=== PATIENT | male | born 1935 | race Caucasian/White ===

== ENCOUNTER 2016-09-21 04:43 | Emergency (ER) | payer MEDICARE, OTHER ==
[2016-09-21 04:43] VITALS: O2SAT 96
[2016-09-21] MEDS ORDERED: ceFAZolin 2 GM PREMIX 50 ML IV STA (04:57)
[2016-09-21] MEDS ORDERED: DIPHTH/TETANUS/ACEL PERTUSSIS (BOOSTER) 0.5 ML VIAL/PFS IM ONE ×2 (04:57→04:58)
[2016-09-21] MEDS ORDERED: ceFAZolin 2 GM PREMIX 50 ML ONE (04:58)
[2016-09-21 05:04] LABS: I-STAT POTASSIUM 4.5 MMOL/L (3.5-4.9)
[2016-09-21 05:05] LABS: AUTOMATED NEUTROPHIL # 4.5 TH/MM3 (1.8-7.7); BASOPHIL # 0.1 TH/MM3 (0-0.2); EOSINOPHIL # 0.4 TH/MM3 (0-0.4); EOSINOPHIL % 5.5 % (0.0-4.0); HEMATOCRIT 36.9 % (39.0-51.0); HEMO FLAGS DIFF FINAL; LYMPH % 16.4 % (9.0-44.0); LYMPHOCYTE # 1.1 TH/MM3 (1.0-4.8); MEAN CELL VOLUME 93.3 FL (80.0-100.0); MEAN CORPUSCULAR HEMOGLOBIN 30.9 PG (27.0-34.0); MEAN CORPUSCULAR HGB CONC 33.1 % (32.0-36.0); MONO % 10.6 % (0.0-8.0); NEUT % 66.5 % (16.0-70.0); PLATELET COUNT 225 TH/MM3 (150-450); RED BLOOD COUNT 3.95 MIL/MM3 (4.50-5.90); RED CELL DISTRIBUTION WIDTH 14.6 % (11.6-17.2); WHITE BLOOD COUNT 6.7 TH/MM3 (4.0-11.0)
[2016-09-21 05:15] LABS: APTT (PATIENT) 31.3 SEC (24.3-30.1); INTERNATIONAL NORMALIZED RATIO 1.2 RATIO; PROTHROMBIN TIME - PATIENT 13.6 SEC (9.8-11.6)
[2016-09-21] MEDS ORDERED: LIDOCAINE 1%/EPINEPHrine 1:100,000 SOLN 50 ML VIAL ONE (05:22)
--- NOTE | 2016-09-21 05:23 | PD ---
HPI Chief Complaint: Trauma (Alert) Time Seen by Provider: 04:45 Travel History International Travel<30 days: No Contact w/Intl Traveler<30days: No Traveled to known affect area: No History of Present Illness HPI The patient is a reportedly 80 year old male who presents to the [facility] emergency department with a history of being heard by the [facility] staff to fall in his room prior to arrival. They aren't sure whether he fell out of bed or fell from a standing position. The patient cannot recall a fall. The patient has a history of confusion with a GCS normally of 14. The patient was noted to be sitting holding his head with active bleeding. The patient had a 15 cm laceration to the forehead noted. A pressure bandage was applied prior to arrival. It is unknown whether he had a loss of consciousness although he did not appear to according to the [facility]ci staff. The patient at this time is not providing any significant history. The patient's history is obtained through the electronic medical record. He is able to follow commands and moves all extremities equally. He is to provide any other history on review of systems. [facility] Past Medical History Narrative Medical The patient's past medical history is significant for atrial fibrillation, history of liver cirrhosis, history of psychosis, history of sleep apnea, history of prior stroke, history of sick sinus syndrome, history of AICD placement, history of a cardiomyopathy with an ejection fraction of 30%. The patient is currently anticoagulated with Xarelto. Past Surgical History Narrative Surgical The patient's past surgical history is obtained through the electronic medical record and consists of AICD placement. Social History Alcohol Use: No Tobacco Use: No Substance Use: No Allergies-Medications (Allergen,Severity, Reaction): Coded Allergies: MRI PRECAUTION (Verified Allergy, Unknown, 09/21/16) Reported Meds & Prescriptions Reported Meds & Active Scripts Active Reported Aspir-81 (Aspirin) 81 Mg Tabdr 1 Tab PO DAILY Aricept (Donepezil HCl) 10 Mg Tablet 1 Tab PO DAILY Lasix (Furosemide) 40 Mg Tab 40 Mg PO BID Coreg (Carvedilol) 3.125 Mg Tab 3.125 Mg PO BID Xarelto (Rivaroxaban) 20 Mg Tab 20 Mg PO DAILY Lisinopril 10 Mg Tab 10 Mg PO DAILY Feosol (Ferrous Sulfate) 200 Mg Tab 200 Mg PO TID Review of Systems ROS Limitations: Poor Historian Physical Exam Narrative General: The patient is a well-developed well-nourished male in no acute distress. The patient is brought in on a back board, however no cervical collar was in place as the patient's neck was too large to place one on. Head and Neck exam: Head is normocephalic, evidence of trauma over the forehead with a 15 cm laceration that is gaping approximately 4 cm. Active bleeding is noted with removal of the pressure dressing. Pressure dressing was reapplied. No facial bone tenderness or increased facial bone mobility noted on palpation. Eyes: EOMI, pupils are equal round and reactive to light. Nose: Midline septum with pink mucous membranes Mouth: Dentition unremarkable. Moist mucus membranes. Posterior oropharynx is not erythematous. No tonsillar hypertrophy. Uvula midline. Airway patent. Neck: The patient has no spinous process tenderness to palpation. No step-off or crepitus. No tracheal deviation. The trachea appears midline. Cardiovascular: Regular rate and rhythm without murmurs, gallops, or rubs. No pulse deficit to the extremities. Lungs: Clear to auscultation bilaterally. No wheezes, rhonchi, or rales. No chest wall tenderness to palpation. No erythema or ecchymosis noted. No crepitus , step off, or flail segment noted. Abdomen: Soft, without tenderness to palpation in all 4 quadrants of the abdomen. No guarding, rebound, or rigidity. No erythema or ecchymosis noted. Extremities: No instability or pain noted on pelvic rock. No clubbing or cyanosis. The patient has 1+ edema bilateral lower extremities with bandages in place. 2+ pulses in all 4 extremities. No extremity tenderness or deformity noted on palpation or passive/ active range of motion, except on examination of bilateral lower extremities the patient has dressings in place over bilateral lower extremities. These were removed. The patient has chronic wounds on examination with superficial skin breakdown. Dressings will be reapplied. Back: The patient was log rolled off of the back board. No spinous process tenderness to palpation. No stepoff or crepitus noted. No costovertebral angle tenderness to palpation. No erythema or ecchymosis. Neurologic Exam: Cranial nerves 2-12 were intact on exam. Strength is 5/5 in all 4 extremities. No sensory deficits noted. The patient is oriented to person , however not place, time, or situation. Data Data Last Documented VS Vital Signs Date Time Temp Pulse Resp B/P Pulse Ox O2 Delivery O2 Flow Rate FiO2 09/21/16 09:19 69 15 119/53 97 Nasal Cannula 2 09/21/16 06:03 97.9 Orders I-Stat Profile (09/21/16 04:46) I-Stat Creatinine (09/21/16 04:46) Complete Blood Count With Diff (09/21/16 04:46) Prothrombin Time / Inr (Pt) (09/21/16 04:46) Act Partial Throm Time (Ptt) (09/21/16 04:46) Type And Screen (09/21/16 04:46) Chest, Single Ap (09/21/16 04:46) Pelvis, Ap Only (Routine) (09/21/16 04:46) Ct Brain W/O Iv Contrast(Rout) (09/21/16 04:46) Ct Cerv Spine W/O Contrast (09/21/16 04:46) Iv Access Insert/Monitor (09/21/16 04:46) Ecg Monitoring (09/21/16 04:46) Oximetry (09/21/16 04:46) Oxygen Administration (09/21/16 04:46) Cefazolin 2 Gm Premix (Ancef 2 Gm Premix (09/21/16 04:58) Vvxu-Fbj-Tpjugo (Booster) Inj (Boostrix (09/21/16 04:58) Lidocai-Epi 1%-1:100,000 Inj (Xylocaine- (09/21/16 05:22) Midazolam Inj (Versed Inj) (09/21/16 05:30) Midazolam Inj (Versed Inj) (09/21/16 05:24) Cefazolin 2 Gm Premix (Ancef 2 Gm Premix (09/21/16 04:57) Xtrp-Uhf-Nnpvdp (Booster) Inj (Boostrix (09/21/16 04:57) Trauma Office Use Only (09/21/16 11:10) Labs Laboratory Tests Test 09/21/16 04:48 White Blood Count 6.7 TH/MM3 Red Blood Count 3.95 MIL/MM3 Hemoglobin 12.2 GM/DL Bedside Hemoglobin 12.9 G/DL Hematocrit 36.9 % Bedside Hematocrit 38.0 % Mean Corpuscular Volume 93.3 FL Mean Corpuscular Hemoglobin 30.9 PG Mean Corpuscular Hemoglobin 33.1 % Concent Red Cell Distribution Width 14.6 % Platelet Count 225 TH/MM3 Mean Platelet Volume 9.9 FL Neutrophils (%) (Auto) 66.5 % Lymphocytes (%) (Auto) 16.4 % Monocytes (%) (Auto) 10.6 % Eosinophils (%) (Auto) 5.5 % Basophils (%) (Auto) 1.0 % Neutrophils # (Auto) 4.5 TH/MM3 Lymphocytes # (Auto) 1.1 TH/MM3 Monocytes # (Auto) 0.7 TH/MM3 Eosinophils # (Auto) 0.4 TH/MM3 Basophils # (Auto) 0.1 TH/MM3 CBC Comment DIFF FINAL Differential Comment Prothrombin Time 13.6 SEC Prothromb Time International 1.2 RATIO Ratio Activated Partial 31.3 SEC Thromboplast Time Bedside Sodium 142 MMOL/L Bedside Potassium 4.5 MMOL/L Bedside Chloride 100 MMOL/L Bedside Blood Urea Nitrogen 38 MG/DL Bedside Creatinine 1.9 MG/DL Bedside Glucose 121 MG/DL Blood Type A POSITIVE Antibody Screen NEGATIVE MDM Medical Decision Making Medical Screen Exam Complete: Yes Emergency Medical Condition: Yes Medical Record Reviewed: Yes Interpretation(s) Last Impressions Pelvis X-Ray 09/21/16445 Signed Impressions: Service Date/Time: Wednesday, September 21, 2016 04:37 - CONCLUSION: Unremarkable examination of the pelvis. Only the proximal femora are exposed. 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 No evidence of acute hemorrhage or edema. Mitch Bragg MD Chest X-Ray [id number]/[id number] Signed Impressions: Service Date/Time: Wednesday, September 21, 2016 04:37 - CONCLUSION: Normal examination. Left subclavian single lead pacer in good position Mitch Bragg MD Cervical Spine CT [id number] Signed Impressions: Service Date/Time: Wednesday, September 21, 2016 05:08 - CONCLUSION: Normal examination. Mitch Bragg MD Differential Diagnosis Intracranial hemorrhage, versus cervical spine fracture, versus facial laceration Narrative Course During the course of the patients emergency department visit, the patients history, examination, and differential diagnosis were reviewed with the patient. The patient had 2 large-bore IVs place and bilateral upper extremities. An i-STAT with creatinine was ordered. A chest x-ray, pelvic x- ray was ordered. A pressure bandage was reapplied to the patient's head. The CT scan of the head, neck was ordered. Prior to arrival in trauma alert was called on this patient. The trauma surgeon, was notified at 4:34 AM regarding this patient's trauma alert status. He did come in and evaluate the patient at the patient's bedside when he was in the trauma bay. The patient was initially provided an update of his tetanus, Ancef 2 g IV. The patient was accompanied to CT by the trauma surgeon. As no evidence of hemorrhage was noted on CT scan of the brain, CT scan of the C-spine showed no acute abnormality. He recommended repair of the wound and discharged back to the patient's [facility]. Kellie, the physician promotions assistant was consultative regarding wound irrigation and repair. The patients laboratory studies were reviewed and remarkable for a white count of 6.7 hemoglobin 12.9, platelets 225 with 10.6 monocytes, i-STAT with creatinine reveals a sodium of 142, potassium 4.5, chloride 100, BUN 38, creatinine 1.9, glucose 121, PT 13.6, INR 1.2, PTT 31.3 Radiology studies were reviewed and remarkable for a chest x-ray that shows a normal examination according to the reading radiologist with the left subclavian single lead pacer in good position, pelvis x-ray shows no acute abnormality, CT scan of the brain shows no acute abnormality, large old left sided MCA stroke is noted. CT scan of the C-spine shows no acute abnormality. The patient's dressings were removed from his legs. The patient has chronic appearing areas of ulceration along the lower extremities. Dressings were reapplied to the patient's legs. The patient is resting comfortably and feels better, is alert and in no distress. The patients results and examination findings were discussed with the patient. The repeat examination is unremarkable and benign. The history, exam, diagnostic testing, and current condition do not suggest any significant pathology to warrant further testing, continued ED treatment, admission, or surgical evaluation at this point. The vital signs have been stable. The patient does not have uncontrollable pain, intractable vomiting, or other significant symptoms. The patient's condition is stable and appropriate for discharge. The patient will pursue further outpatient evaluation with a primary care physician or other designated or consulting physician as indicated in the discharge instructions. The patient expressed understanding and was agreeable with this plan. Physician Communication Physician Communication The patient's case was discussed with the trauma surgeon, . As the patient has no acute findings on his imaging, he reports that the patient can be discharged back to his [facility]. Diagnosis Primary Impression: Head injury due to trauma Qualified Code: S09.90XA - Head injury due to trauma, initial encounter Additional Impression: Forehead laceration Qualified Code: S01.81XA - Forehead laceration, initial encounter Referrals: Primary Care Physician 1 day Patient Instructions: Facial Laceration (ED), General Instructions, Head Injury (ED) Additional Instructions: The patient's [facility]ci will be instructed on head injury protocol. Med/Other Pt SpecificInfo: No Change to Meds Disposition: 03 DISCHARGE TO SNF Condition: Stable Divina Shelby MD Sep 21, 2016 05:23
[2016-09-21] MEDS ORDERED: MIDAZOLAM HCL 5 MG/ML VIAL (1 ML) ONE (05:24)
--- NOTE | 2016-09-21 05:25 | RADRPT ---
EXAM DATE/TIME: 09/21/2016 05:07 [facility] COMPARISON: No previous studies available for comparison. INDICATIONS : Trauma alert, fell out of bed. Large laceration on forehead. RADIATION DOSE: 56.35 CTDIvol (mGy) MEDICAL HISTORY : None SURGICAL HISTORY : None. ENCOUNTER: Initial ACUITY: 1 day PAIN SCALE: 5/10 LOCATION: cranial TECHNIQUE: Multiple contiguous axial images were obtained of the head. Using automated exposure control and adj ustment of the mA and/or kV according to patient size, radiation dose was kept as low as reasonably a chievable to obtain optimal diagnostic quality images. FINDINGS: Pacemaker overlies left chest CEREBRUM: Old stroke involving the left MCA distribution The ventricles are normal for age. No evidence of mid line shift, mass lesion, hemorrhage or acute infarction. No extra-axial fluid collections are seen. POSTERIOR FOSSA: The cerebellum and brainstem are intact. The 4th ventricle is midline. The cerebellopontine angle i s unremarkable. EXTRACRANIAL: The visualized portion of the orbits is intact. SKULL: The calvaria is intact. No evidence of skull fracture. 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 No evidence of acute hemorrhage or edema. Mitch Bragg MD on September 21, 2016 at 5:23 Board Certified Radiologist. This report was verified electronically.
[2016-09-21] MEDS ORDERED: MIDAZOLAM HCL 2 MG/2 ML VIAL IV PUSH ONE (05:30)
--- NOTE | 2016-09-21 05:34 | RADRPT ---
EXAM DATE/TIME: 09/21/2016 04:37 [facility] COMPARISON: No previous studies available for comparison. INDICATIONS : Trauma Alert, fall out of bed. MEDICAL HISTORY : None. SURGICAL HISTORY : None. ENCOUNTER: Initial ACUITY: 1 day PAIN SCORE: Non-responsive. LOCATION: Bilateral pelvis FINDINGS: A single view of the chest demonstrates the lungs to be symmetrically aerated without evidence of mas s, infiltrate or effusion. The cardiomediastinal contours are unremarkable. Osseous structures are intact. CONCLUSION: Normal examination. Left subclavian single lead pacer in good position Mitch Bragg MD on September 21, 2016 at 5:33 Board Certified Radiologist. This report was verified electronically.
--- NOTE | 2016-09-21 05:34 | RADRPT ---
EXAM DATE/TIME: 09/21/2016 04:37 [facility] COMPARISON: No previous studies available for comparison. INDICATIONS : Trauma Alert, fall out of bed. MEDICAL HISTORY : None. SURGICAL HISTORY : None. ENCOUNTER: Initial ACUITY: 1 day PAIN SCORE: Non-responsive. LOCATION: Bilateral chest FINDINGS: A single frontal view of the pelvis demonstrates no evidence of fracture. The bony pelvic ring is in tact. Bony mineralization is normal. The soft tissues are intact. CONCLUSION: Unremarkable examination of the pelvis. Only the proximal femora are exposed. Mitch Bragg MD on September 21, 2016 at 5:32 Board Certified Radiologist. This report was verified electronically.
--- NOTE | 2016-09-21 05:39 | RADRPT ---
EXAM DATE/TIME: 09/21/2016 05:08 [facility] COMPARISON: No previous studies available for comparison. INDICATIONS : Trauma alert, fell out of bed. RADIATION DOSE: 44.46 CTDIvol (mGy) MEDICAL HISTORY : None SURGICAL HISTORY : None. ENCOUNTER: Initial ACUITY: 1 day PAIN SCALE: 4/10 LOCATION: neck TECHNIQUE: Volumetric scanning of the cervical spine was performed. Multiplanar reconstructions in the sagittal, coronal and oblique axial planes were performed. Using automated exposure control and adjustment o f the mA and/or kV according to patient size, radiation dose was kept as low as reasonably achievable to obtain optimal diagnostic quality images. FINDINGS: VERTEBRAE: Normal vertebral body height. ALIGNMENT: No evidence of subluxation. C2-C3: The bony spinal canal is normal in size. No evidence of disc bulge or herniation. The neural forami na are bilaterally patent. C3-C4: The bony spinal canal is normal in size. No evidence of disc bulge or herniation. The neural forami na are bilaterally patent. C4-C5: The bony spinal canal is normal in size. No evidence of disc bulge or herniation. The neural forami na are bilaterally patent. C5-C6: The bony spinal canal is normal in size. No evidence of disc bulge or herniation. The neural forami na are bilaterally patent. C6-C7: The bony spinal canal is normal in size. No evidence of disc bulge or herniation. The neural forami na are bilaterally patent. C7-T1: The bony spinal canal is normal in size. No evidence of disc bulge or herniation. The neural forami na are bilaterally patent. CONCLUSION: Normal examination. Mitch Bragg MD on September 21, 2016 at 5:38 Board Certified Radiologist. This report was verified electronically.
[2016-09-21] MEDS ORDERED: CARV3.125 PO (06:00)
[2016-09-21] MEDS ORDERED: FERR200T PO (06:00)
[2016-09-21] MEDS ORDERED: ARIC10TA2 PO (06:00)
[2016-09-21] MEDS ORDERED: FURO1TAB60 PO (06:00)
[2016-09-21] MEDS ORDERED: ASPI81TA81 PO (06:00)
[2016-09-21] MEDS ORDERED: LISI10TA3 PO (06:00)
[2016-09-21] MEDS ORDERED: XARE20TA PO (06:00)
[2016-09-21 06:03] VITALS: BP 120/89; PULSE 52; RESP 18; TEMP 97.9; O2SAT 97
--- NOTE | 2016-09-21 06:09 | PD ---
Physical Exam Date Seen by Provider: Sep 21, 2016 Time Seen by Provider: 05:20 Narrative For full history and physical examination please see previous provider's note. I was asked to repair laceration to patient's scalp. Data Data Last Documented VS Vital Signs Date Time Temp Pulse Resp B/P Pulse Ox O2 Delivery O2 Flow Rate FiO2 09/21/16 06:03 97.9 52 18 120/89 97 Nasal Cannula 2 Orders I-Stat Profile (09/21/16 04:46) I-Stat Creatinine (09/21/16 04:46) Complete Blood Count With Diff (09/21/16 04:46) Prothrombin Time / Inr (Pt) (09/21/16 04:46) Act Partial Throm Time (Ptt) (09/21/16 04:46) Type And Screen (09/21/16 04:46) Chest, Single Ap (09/21/16 04:46) Pelvis, Ap Only (Routine) (09/21/16 04:46) Ct Brain W/O Iv Contrast(Rout) (09/21/16 04:46) Ct Cerv Spine W/O Contrast (09/21/16 04:46) Iv Access Insert/Monitor (09/21/16 04:46) Ecg Monitoring (09/21/16 04:46) Oximetry (09/21/16 04:46) Oxygen Administration (09/21/16 04:46) Cefazolin 2 Gm Premix (Ancef 2 Gm Premix (09/21/16 04:58) Vmor-Zli-Wxmzaa (Booster) Inj (Boostrix (09/21/16 04:58) Lidocai-Epi 1%-1:100,000 Inj (Xylocaine- (09/21/16 05:22) Midazolam Inj (Versed Inj) (09/21/16 05:30) Midazolam Inj (Versed Inj) (09/21/16 05:24) Labs Laboratory Tests Test 09/21/16 04:48 White Blood Count 6.7 TH/MM3 Red Blood Count 3.95 MIL/MM3 Hemoglobin 12.2 GM/DL Bedside Hemoglobin 12.9 G/DL Hematocrit 36.9 % Bedside Hematocrit 38.0 % Mean Corpuscular Volume 93.3 FL Mean Corpuscular Hemoglobin 30.9 PG Mean Corpuscular Hemoglobin 33.1 % Concent Red Cell Distribution Width 14.6 % Platelet Count 225 TH/MM3 Mean Platelet Volume 9.9 FL Neutrophils (%) (Auto) 66.5 % Lymphocytes (%) (Auto) 16.4 % Monocytes (%) (Auto) 10.6 % Eosinophils (%) (Auto) 5.5 % Basophils (%) (Auto) 1.0 % Neutrophils # (Auto) 4.5 TH/MM3 Lymphocytes # (Auto) 1.1 TH/MM3 Monocytes # (Auto) 0.7 TH/MM3 Eosinophils # (Auto) 0.4 TH/MM3 Basophils # (Auto) 0.1 TH/MM3 CBC Comment DIFF FINAL Differential Comment Prothrombin Time 13.6 SEC Prothromb Time International 1.2 RATIO Ratio Activated Partial 31.3 SEC Thromboplast Time Bedside Sodium 142 MMOL/L Bedside Potassium 4.5 MMOL/L Bedside Chloride 100 MMOL/L Bedside Blood Urea Nitrogen 38 MG/DL Bedside Creatinine 1.9 MG/DL Bedside Glucose 121 MG/DL Blood Type A POSITIVE Antibody Screen NEGATIVE MDM Supervised Visit with KEYLA: Yes Procedures Procedure Narrative LACERATION LOCATION: Anterior scalp LENGTH: 15 cm NUMBER OF STITCHES/SAMI: 35 sami REPAIR: The area of the laceration was prepped with Betadine and sterilely draped. The laceration was infiltrated with 1% lidocaine with epi. The wound was copiously irrigated and explored without evidence of foreign body, tendon injury or neurovascular injury. The wound was closed using sami. This was a 1 layer repair. A sterile dressing was applied. Patient tolerated the procedure well. Diagnosis Primary Impression: Head injury due to trauma Additional Impression: Forehead laceration Kellie Gutierrez Sep 21, 2016 06:09
[2016-09-21 07:09] VITALS: BP 103/53; PULSE 78; RESP 17; O2SAT 96
[2016-09-21 07:10] VITALS: O2SAT 98
[2016-09-21 09:19] VITALS: BP 119/53; PULSE 69; RESP 15; O2SAT 97
== END 2016-09-21 10:27 ==
LOC: NEPI 04:43 → EDBD 04:43 → NEPE 10:27
DX: S01.81XA Laceration without foreign body of other part of head, initial encounter (principal); I48.91 Unspecified atrial fibrillation; W19.XXXA Unspecified fall, initial encounter; Y92.122 Bedroom in nursing home as the place of occurrence of the external cause; Z23 Encounter for immunization; Z79.01 Long term (current) use of anticoagulants; Z79.899 Other long term (current) drug therapy
CPT/HCPCS: 12005; 70450; 71010; 72125; 72170; 82435; 82565; 82947; 84132; 84295; 84520; 85025; 85610; 85730; 86850; 86900; 86901; 90471; 90715; 96365; 99285; G0390; J0690; J2250; 99291